=== PATIENT | female | born 1945 | race Caucasian/White ===

== ENCOUNTER 2019-12-06 06:19 | Day surgery (SDC) | payer MEDICARE ==
[~2019-12-06] VITALS: Ht 154.9 cm; Wt 61.2 kg
[~2019-12-06 06:19] MED LIST: ACET500 PO; AZELASTINE137 MCG/01 INH; DHEA; ESTR2 PO; GABA100 PO; HYDACE5 PO; METCAR500 PO; NAPR550 PO; OCUFLOX5 ML; PRED20 PO; PROM25 PO; TRAM50 PO; ZYRTEC10 M2 PO
--- NOTE | 2019-12-06 12:20 | NUR ---
12/06/19 1220 Dennise Thompson 50 MCG FENTANYL IV GIVEN PER ORDERS IN INCREMENTS IN SDU. [employer] APPLICATION CLOSED WHILE CHARTING IN THE EMAR. UNABLE TO CHART ADMINISTRATION OF FENTANYL DUE TO CHART LOCKOUT. TOTAL OF 50 MCG FENTANYL IV GIVEN IN SDU.
== END 2019-12-06 11:10 | disposition home or self-care (01) ==
LOC: ORSCSDS 06:19
PROVIDERS: Otolaryngology
PROC: 09Q80ZZ Repair Left Tympanic Membrane, Open Approach (ICD-10-PCS; principal; 2019-12-06 07:30)
DX: H90.71 Mixed conductive and sensorineural hearing loss, unilateral, right ear, with unrestricted hearing on the contralateral side (principal); E03.9 Hypothyroidism, unspecified; Z79.899 Other long term (current) drug therapy
CPT/HCPCS: J0330; J1100; J1885; J2001; J2405; J2704; J3010; J7120

== ENCOUNTER → 2020-06-14 | Outpatient (CLI) | payer MEDICARE ==
[~2020-06-14] MED LIST changes: +ALLEGRA ALLERGY60 MG PO; +BENADRYL25 MG PO; +HYDHCL25 PO; +Prednisone20 MG PO
[2020-06-14 15:11] LABS: BASOPHILS ABSOLUTE AUTO 0.02 K/mm3 (0.00-0.23); BASOPHILS PERCENT AUTO 0 % (0-2); EOSINOPHILS ABSOLUTE AUTO 0.02 K/mm3 (0.00-0.68); EOSINOPHILS PERCENT AUTO 0 % (0-6); Hematocrit 40.7 % (33.0-51.0); Hemoglobin 13.5 g/dL (11.5-16.0); IMMATURE GRAN ABSOLUTE AUTO 0.02 K/mm3 (0.00-0.10); IMMATURE GRAN PERCENT AUTO 0 % (0-1); LYMPHOCYTES PERCENT AUTO 14 % (21-46); MONOCYTES ABSOLUTE AUTO 0.34 K/mm3 (0.16-1.47); MONOCYTES PERCENT AUTO 5 % (4-13); Mean Corpuscular HGB 29.6 pg (26.0-34.0); Mean Corpuscular HGB Conc 33.2 g/dL (31.5-36.5); Mean Corpuscular Volume 89 fL (80-100); Mean Platelet Volume 10.5 fL (9.1-12.4); NEUTROPHILS ABSOLUTE AUTO 5.99 K/mm3 (1.96-9.15); NEUTROPHILS PERCENT AUTO 81 % (41-73); Platelet Count 231 K/mm3 (150-400); RDW Coefficient Variation 13.2 % (11.7-14.2); RDW Standard Deviation 43.3 fL (35.1-46.3); Red Blood Cell Count 4.56 M/mm3 (3.80-5.20); White Blood Cell Count 7.39 K/mm3 (4.00-11.30)
[2020-06-14 15:29] LABS: Alanine Aminotransfer (ALT/SGP 27 U/L (12-78); Albumin, Blood 3.9 g/dL (3.4-5.0); Albumin/Globulin Ratio 1.3 (0.8-1.8); Alk Phos 72 U/L (40-126); Anion Gap 6 mmol/L (6-16); Aspartate Aminotrans (AST/SGOT 16 U/L (12-37); Bilirubin, Total 0.3 mg/dL (0.1-1.0); Blood Urea Nitrogen 16 mg/dL (8-24); Bun/Creatinine Ratio 26.7 (12.0-20.0); CO2, Blood 31 mmol/L (21-32); Calcium, Blood 8.9 mg/dL (8.5-10.1); Chloride, Blood 101 mmol/L (98-108); Globulin, Blood 3.1 g/dL (2.2-4.0); Glomerular Filtration Rate >60 (60-); Glucose, Blood 91 mg/dL (70-99); Potassium, Blood 3.9 mmol/L (3.5-5.5); Sodium, Blood 138 mmol/L (136-145); Thyroid Stimulating Hormone 1.023 uIU/mL (0.360-4.800)
== END | disposition home or self-care (01) ==
LOC: LAB SHORT 15:05 → LAB EV 15:05
PROVIDERS: Physician Assistant
DX: I95.1 Orthostatic hypotension (principal); R53.83 Other fatigue
CPT/HCPCS: 80053; 84443; 85025

== ENCOUNTER → 2020-06-18 | Outpatient (CLI) | payer MEDICARE ==
[2020-06-19 18:12] LABS: Campylobacter Sp Not Detected (NOT DETECT); Plesiomonas Shigelloides Not Detected (NOT DETECT); Salmonella Sp Not Detected (NOT DETECT); Yersinia Enterocolitica Not Detected (NOT DETECT)
[2020-06-19 18:13] LABS: Adenovirus F 40/41 Not Detected (NOT DETECT); Astrovirus Not Detected (NOT DETECT); Cryptosporidium Not Detected (NOT DETECT); Cyclospora Cayetanensis Not Detected (NOT DETECT); E. Coli O157 Not Detected (NOT DETECT); Entamoeba Histolytica Not Detected (NOT DETECT); Enteroaggregative E. coli-EAEC Not Detected (NOT DETECT); Enteropathogenic E. coli-EPEC Not Detected (NOT DETECT); Enterotoxigenic E. coli-ETEC Not Detected (NOT DETECT); Giardia Lamblia Not Detected (NOT DETECT); Norovirus GI/GII Not Detected (NOT DETECT); Rotavirus A Not Detected (NOT DETECT); Sapovirus Not Detected (NOT DETECT); Shiga Toxin-prod E. coli-STEC Not Detected (NOT DETECT); Shigella/Enteroin E. coli-EIEC Not Detected (NOT DETECT); Vibrio Cholerae Not Detected (NOT DETECT); Vibrio Sp Not Detected (NOT DETECT)
== END | disposition home or self-care (01) ==
LOC: LAB EV 21:45 → LAB SHORT 21:45
PROVIDERS: Nurse Practitioner Family
DX: R10.9 Unspecified abdominal pain (principal); R19.7 Diarrhea, unspecified
CPT/HCPCS: 0097U; 87338

== ENCOUNTER 2020-08-28 07:27 | Day surgery (SDC) | payer MEDICARE ==
[~2020-08-28] VITALS: Ht 154.9 cm; Wt 59.0 kg
[~2020-08-28 07:27] MED LIST changes: -ALLEGRA ALLERGY60 MG PO; -BENADRYL25 MG PO; -HYDHCL25 PO; -Prednisone20 MG PO
--- NOTE | 2020-08-28 15:18 | NUR ---
08/28/20 8027 Mis Davis PT CALLED IN STATING SHE IS HAVING SOME HIVE LIKE REACTIONS [facility] SHE REPORTS ITCHING, TICKINGLING IN THE THROAT AND SOME FLUSHING OF THE FACE. SHE DENIES DIFFICULTY SWALLOWING OR BREATHING. SPOKE WITH DR. PAUL, PT TO TRY BENEDRYL TO SEE IF IT HELPS WITH SYMPTOMS. IF NO HELP PT TO GO TO THE URGENT CARE.
[2020-08-29] MEDS ORDERED: Prednisone20 MG PO (10:15)
[2020-08-29] MEDS ORDERED: BENADRYL25 MG PO (10:15)
[2020-08-29] MEDS ORDERED: ALLEGRA ALLERGY60 MG PO (10:15)
== END 2020-08-28 10:30 | disposition home or self-care (01) ==
LOC: ORSCSDS 07:27
PROVIDERS: Surgery
PROC: 0DBH8ZX Excision of Cecum, Via Natural or Artificial Opening Endoscopic, Diagnostic (ICD-10-PCS; principal; 2020-08-28 09:00)
PROC: 0DB68ZX Excision of Stomach, Via Natural or Artificial Opening Endoscopic, Diagnostic (ICD-10-PCS; principal; 2020-08-28 09:00)
DX: K30 Functional dyspepsia (principal); K29.60 Other gastritis without bleeding; D12.0 Benign neoplasm of cecum; Z12.11 Encounter for screening for malignant neoplasm of colon; Z86.010 Personal history of colon polyps
CPT/HCPCS: 88305; 88342; J2704; J7120

== ENCOUNTER 2020-08-29 08:52 | Emergency (ER) | payer MEDICARE ==
[~2020-08-29] VITALS: Ht 160 cm; Wt 59.4 kg
[2020-08-29] MEDS ORDERED: BENADRYL25 MG PO (10:15)
[2020-08-29] MEDS ORDERED: ALLEGRA ALLERGY60 MG PO (10:15)
[2020-08-29] MEDS ORDERED: Prednisone20 MG PO (10:15)
== END 2020-08-29 10:34 | disposition home or self-care (01) ==
LOC: ER 08:52
DX: T78.40XA Allergy, unspecified, initial encounter (principal); Z88.5 Allergy status to narcotic agent; Z79.899 Other long term (current) drug therapy
CPT/HCPCS: 36415; 96374; 96375; 99282-25; J1200; J2930

== ENCOUNTER 2020-08-31 09:02 | Emergency (ER) | payer MEDICARE ==
[~2020-08-31] VITALS: Ht 167.6 cm; Wt 54.4 kg
[~2020-08-31 09:02] MED LIST changes: +ALLEGRA ALLERGY60 MG PO; +BENADRYL25 MG PO; +Prednisone20 MG PO
[2020-08-31] MEDS ORDERED: HYDHCL25 PO (10:17)
== END 2020-08-31 10:39 | disposition home or self-care (01) ==
LOC: ER 09:02
DX: T78.49XA Other allergy, initial encounter (principal); R21 Rash and other nonspecific skin eruption; Z88.5 Allergy status to narcotic agent; Z79.52 Long term (current) use of systemic steroids; Z79.899 Other long term (current) drug therapy
CPT/HCPCS: 99282; A9270; J1100

== ENCOUNTER 2024-06-22 07:19 | Day surgery (SDC) | payer OTHER ==
[~2024-06-22] VITALS: Ht 154.9 cm; Wt 62.2 kg
[~2024-06-22 07:19] MED LIST changes: +Balanced Salt Epinephrine Irrigation Solution 500 mL IR SCH; +Diazepam 5 MG Tab PO PRN; +Diazepam 5 MG Tab PO SCH; +HYDHCL25 PO; +Lidocaine HCl/Pf 1% 5 ML VIAL XX SCH; +Moxifloxacin HCL 0.5 MG/0.1 ML 0.4MLSYR RIGHTEYE SCH; +Ondansetron 4 MG SoluTab MM PRN; +PHENYLEPHRINE\\TROPICAMIDE\\TETRACAINE OPHTHALMIC DILATING SOLN RIGHTEYE PRN; +Povidone-Iodine 450 DROP/30 ML Solution ONE; +Povidone-Iodine 450 DROP/30 ML Solution RIGHTEYE SCH; +Tetracaine HCl/Pf 0.5% Opth Soln 4 ml ONE; +Triamcinolone Inj Susp 40 MG / ML 1ML Vial INJ SCH; +Triamcinolone Inj Susp 40 MG / ML 1ML Vial ONE
[2024-06-22] MEDS ORDERED: Diazepam 10 MG Tab ONE (07:55)
[2024-06-22] MEDS ORDERED: CENTRUM SILVER1 EAC2 PO (08:16)
[2024-06-22] MEDS ORDERED: IRON18 M1 PO (08:17)
--- NOTE | 2024-06-22 08:45 | NUR ---
06/22/24 0845 ReyCarlos VALIUM ADMINISTERED AT 0809, TETRACAINE AT 0812, AND PLEDGET PLACED AT 0813. PT DOING WELL. ANXIETY LEVEL 0.
--- NOTE | 2024-06-22 08:57 | NUR ---
06/22/24 0857 Mis Davis 0851 BP 133/62, PULSE 72, O2 AT 96% ON BLOW BY OXYGEN. VS STABLE
[2024-06-22 09:31] VITALS: BP 126/60
[2024-06-22] MEDS ORDERED: Lidocaine HCl/Pf 1% 5 ML VIAL ONE (10:29)
== END 2024-06-22 09:31 | disposition home or self-care (01) ==
LOC: ORSCSDS 07:19
PROVIDERS: Ophthalmology
PROC: 08RJ3JZ Replacement of Right Lens with Synthetic Substitute, Percutaneous Approach (ICD-10-PCS; principal; 2024-06-22 09:00)
DX: H25.813 Combined forms of age-related cataract, bilateral (principal); H52.201 Unspecified astigmatism, right eye; F41.9 Anxiety disorder, unspecified; Z79.899 Other long term (current) drug therapy
CPT/HCPCS: A9270; J2003; J3301; V2632

== ENCOUNTER 2024-06-28 10:24 | Day surgery (SDC) | payer OTHER ==
[~2024-06-28] VITALS: Ht 154.9 cm; Wt 61.7 kg
[~2024-06-28 10:24] MED LIST changes: +CENTRUM SILVER1 EAC2 PO; +IRON18 M1 PO; +Moxifloxacin HCL 0.5 MG/0.1 ML 0.4MLSYR LEFTEYE SCH; -Moxifloxacin HCL 0.5 MG/0.1 ML 0.4MLSYR RIGHTEYE SCH; +PHENYLEPHRINE\\TROPICAMIDE\\TETRACAINE OPHTHALMIC DILATING SOLN LEFTEYE PRN; -PHENYLEPHRINE\\TROPICAMIDE\\TETRACAINE OPHTHALMIC DILATING SOLN RIGHTEYE PRN; +Povidone-Iodine 450 DROP/30 ML Solution LEFTEYE SCH; -Povidone-Iodine 450 DROP/30 ML Solution RIGHTEYE SCH
[2024-06-28] MEDS ORDERED: Diazepam 10 MG Tab ONE (10:46)
--- NOTE | 2024-06-28 11:57 | NUR ---
06/28/24 1157 Luis Corley BP 141/65, HR 69, O2 100% WITH BLOW BY AT 8L.
[2024-06-28 12:18] VITALS: BP 138/64
--- NOTE | 2024-06-28 12:37 | NUR ---
06/28/24 1237 Daria Pennington NOTIFIED TO PICK PATIENT UP AT [facility]. PT VOIDED PRIOR TO DISCHARGE. PATIENT DISCHARGE VIA [place] [facility] IN WHEELCHAIR
== END 2024-06-28 12:37 | disposition home or self-care (01) ==
LOC: ORSCSDS 10:24
PROVIDERS: Ophthalmology
PROC: 08RK3JZ Replacement of Left Lens with Synthetic Substitute, Percutaneous Approach (ICD-10-PCS; principal; 2024-06-28 12:00)
DX: H25.812 Combined forms of age-related cataract, left eye (principal); Z96.1 Presence of intraocular lens; F41.9 Anxiety disorder, unspecified; H04.123 Dry eye syndrome of bilateral lacrimal glands; H52.202 Unspecified astigmatism, left eye; Z79.899 Other long term (current) drug therapy
CPT/HCPCS: A9270; J3301; V2632

== ENCOUNTER 2025-01-08 08:57 | Day surgery (SDC) | payer OTHER ==
[~2025-01-08] VITALS: Ht 154.9 cm; Wt 62.0 kg
[~2025-01-08 08:57] MED LIST changes: -Balanced Salt Epinephrine Irrigation Solution 500 mL IR SCH; -Diazepam 5 MG Tab PO PRN; -Diazepam 5 MG Tab PO SCH; -Lidocaine HCl/Pf 1% 5 ML VIAL XX SCH; -Moxifloxacin HCL 0.5 MG/0.1 ML 0.4MLSYR LEFTEYE SCH; +NS 500 ML IV ONE; -Ondansetron 4 MG SoluTab MM PRN; -PHENYLEPHRINE\\TROPICAMIDE\\TETRACAINE OPHTHALMIC DILATING SOLN LEFTEYE PRN; -Povidone-Iodine 450 DROP/30 ML Solution LEFTEYE SCH; -Povidone-Iodine 450 DROP/30 ML Solution ONE; -Tetracaine HCl/Pf 0.5% Opth Soln 4 ml ONE; -Triamcinolone Inj Susp 40 MG / ML 1ML Vial INJ SCH; -Triamcinolone Inj Susp 40 MG / ML 1ML Vial ONE
[2025-01-08] MEDS ORDERED: CeFAZolin Sodium 2,000 MG VIAL ONE (09:49)
[2025-01-08] MEDS ORDERED: NS 500 ML IV ONE (10:02)
[2025-01-08] MEDS ORDERED: FentaNYL Citrate 50 MCG/ML 2 ML Injection ONE (10:30)
--- NOTE | 2025-01-08 10:44 | NUR ---
01/08/25 Milly4 Rachel Peterson 1040: PATIENT APPEARS TO BE RESTING IN BED, CALL LIGHT IN REACH. NO FURTHER NEEDS AT THIS TIME.
[2025-01-08] MEDS ORDERED: Ondansetron HCl 2 MG / ML 2ML Vial ONE (10:46)
[2025-01-08] MEDS ORDERED: Dexamethasone Sod Phos 10 MG/ML 1ML VIAL ONE (10:46)
[2025-01-08 11:32] VITALS: BP 117/57
== END 2025-01-08 12:15 | disposition home or self-care (01) ==
LOC: ORSCSDS 08:57
PROVIDERS: Orthopaedic Surgery
PROC: 0LN70ZZ Release Right Hand Tendon, Open Approach (ICD-10-PCS; principal; 2025-01-08 10:30)
DX: M65.321 Trigger finger, right index finger (principal); F41.9 Anxiety disorder, unspecified; G62.9 Polyneuropathy, unspecified; M85.80 Other specified disorders of bone density and structure, unspecified site
CPT/HCPCS: 82947; J0690; J1100; J2405; J2704; J3010; J7040